=== PATIENT | male | born 1975 | race Caucasian/White ===

== ENCOUNTER 2021-12-26 21:18 | Emergency (ER) | payer BC ==
[2021-12-26] MEDS ORDERED: methylPREDNISolone Sodium Succinate 125 MG/2 ML SDV IM STA (22:13)
== END 2021-12-26 23:15 | disposition home or self-care (01) ==
LOC: FB.ED 21:18
DX: T63.441A Toxic effect of venom of bees, accidental (unintentional), initial encounter (principal); M79.89 Other specified soft tissue disorders; Z91.030 Bee allergy status
CPT/HCPCS: 96372; 99283; J2930